=== PATIENT | female | born 1960 | race Caucasian/White ===

== ENCOUNTER → 2018-10-06 09:12 | Outpatient (CLI) | payer OTHER, SELFPAY ==
--- NOTE | 2018-10-06 09:21 | MM_ITS ---
MM Dig screening mamm BI w/CAD CAD Screening COMPARISON: Digital mammograms with CAD to 2015 and 10/16/2016 INDICATION: There is no personal or family history of breast cancer TECHNIQUE: Standard CC and MLO images were obtained. R2 CAD reviewed. FINDINGS: Prominent heterogenic fibroglandular densities are seen throughout both breasts. There is a new nodular density with smooth but slightly irregular borders just beneath the nipple left breast. Recommend the patient return for spot compression MLO and CC views and ultrasound for additional evaluation. There is a benign-appearing calcification left breast. There are several small small nodes in both axilla. IMPRESSION: Moderate diffuse breast density with asymmetric density left breast BI-RADS Category: 0 Need Additional Imaging Evaluation RECOMMENDED FOLLOW-UP: IMM - IMMEDIATE FOLLOW-UP RECOMMENDED (A letter has been sent to the patient regarding results of the study.)
== END ==
PROVIDERS: PCP Internal Medicine; Visit Provider Nurse Practitioner Obstetrics & Gynecology
DX: Z12.31 Encounter for screening mammogram for malignant neoplasm of breast (principal)
CPT/HCPCS: 77067

== ENCOUNTER → 2018-10-12 16:41 | Outpatient (CLI) | payer OTHER, SELFPAY | PROVIDERS: Visit Provider Nurse Practitioner Obstetrics & Gynecology | DX: N39.0 Urinary tract infection, site not specified (principal); Z01.419 Encounter for gynecological examination (general) (routine) without abnormal findings | CPT/HCPCS: 87086; 87088; 87186 ==

== ENCOUNTER → 2018-11-04 12:36 | Outpatient (CLI) | payer OTHER, SELFPAY ==
--- NOTE | 2018-11-04 12:38 | MM_ITS ---
PROCEDURE: MM DIG MAMM DX UNILAT LT CAD CLINICAL INDICATION: Dx Mamm Left Breast- abnormal mamm COMPARISON: DIG MAMMO BILAT SCREENING from 04/20/2015 [facility] DIG MAMM-SCREEN EDUARD W/CAD from 10/16/2016 DIG MAMM-SCREEN EDUARD from 10/06/2018 US BREAST LT COMPLETE from 11/04/2018 TECHNIQUE: Spot-compression views are performed of the left breast along with left breast ultrasound FINDINGS: Average to dense fibroglandular tissue which could result in obscuration of underlying breast lesion. Spot compression views of the left breast demonstrates a persistent 7 mm well-circumscribed nodule in the upper inner aspect of the left breast. This is well-circumscribed on the mL view but less well circumscribed on the CC view which could be due to overlying fibroglandular tissue. This is in the 10 o'clock region of the left breast. Left breast ultrasound: At 1 o'clock there is a hypoechoic nodule at 5 mm nonspecific. At 3 o'clock there is a 5 mm cyst. At 10 o'clock there is a 7 x 4 mm hypoechoic nodule. The margins are somewhat irregular. This is felt to correspond to the mammogram. There some decreased through transmission of sound. This is mildly suspicious and fine needle aspiration is suggested to determine if this is a complex cyst or a solid nodule. Small nodes are present in the axilla. IMPRESSION: Mildly suspicious nodule in the upper inner aspect of the left breast. Suggest sonographic guided aspiration. If this does not aspirate than core biopsy or mammotome biopsy would be performed at that time as well. BI-RAD Category: 4 Suspicious Abnormality - Biopsy Considered FOLLOW-UP: BIO Biopsy Recommended (A letter has been sent to the patient regarding results of the study.) Dictated by: Huber Redmond MD 11/09/2018 13:11 Electronically signed by Huber Redmond MD in [place] 11/09/2018 13:11
== END ==
PROVIDERS: PCP Family Medicine; Visit Provider Nurse Practitioner Obstetrics & Gynecology
DX: R92.8 Other abnormal and inconclusive findings on diagnostic imaging of breast (principal); N63.20 Unspecified lump in the left breast, unspecified quadrant
CPT/HCPCS: 76641; 77065

== ENCOUNTER → 2018-11-16 09:19 | Outpatient (CLI) | payer OTHER, SELFPAY ==
--- NOTE | 2018-11-16 09:21 | US_ITS ---
PROCEDURE: US FNA BREAST CLINICAL INDICATION: Abnormal mammogram and abnormal ultrasound with a complex hypoechoic nodule in the 10 o'clock region of the left breast COMPARISON: US BREAST LT COMPLETE from 11/04/2018 MM DIG MAMM DX UNILAT LT CAD from 11/16/2018 FINDINGS: Following obtaining informed consent under aseptic conditions and local anesthesia with 1 percent buffered lidocaine, 21 gauge needle was inserted into the nodule of interest at 10 o'clock. Minimal amount of aspirate was obtained and sent to cytology. The nodule collapsed. Post FNA mammogram was obtained. The patient tolerated the procedure well and left radiology suite in stable condition without evidence of immediate complication. Cytology: Negative for malignancy. Foam cells within a proteinaceous background compatible with benign cyst contents. IMPRESSION: Successful sonographic guided aspiration of the complex nodule in the 10 o'clock region of the left breast representing a benign cyst. Dictated by: Huber Redmond MD 11/28/2018 11:12 Electronically signed by Huber Redmond MD in [place] 11/28/2018 11:12
--- NOTE | 2018-11-16 10:36 | MM_ITS ---
PROCEDURE: MM DIG MAMM DX UNILAT LT CAD CLINICAL INDICATION: POST CYST ASPIRATION COMPARISON: [facility] DIG MAMM-SCREEN EDUARD W/CAD from 10/16/2016 DIG MAMM-SCREEN EDUARD from 10/06/2018 MM DIG MAMM DX UNILAT LT CAD from 11/04/2018 US FNA BREAST from 11/16/2018 TECHNIQUE: Standard CC and MLO images were obtained. R2 CAD reviewed. FINDINGS: Status post left breast cyst aspiration. Previously noted nodule at 10 o'clock is no longer apparent. No malignant appearing mass or malignant-appearing microcalcification. IMPRESSION: Benign findings. Left breast nodule no longer apparent indicating that the mammographic abnormality was concordant with the sonographic abnormality BI-RAD Category: 1 Negative FOLLOW-UP: 1YR 1 Year Follow-up (A letter has been sent to the patient regarding results of the study.) The Dictated by: Huber Redmond MD 11/26/2018 09:03 Electronically signed by Huber Redmond MD in [place] 11/28/2018 11:07
== END ==
PROVIDERS: PCP Internal Medicine; Visit Provider Nurse Practitioner Obstetrics & Gynecology
DX: R92.8 Other abnormal and inconclusive findings on diagnostic imaging of breast (principal); N63.21 Unspecified lump in the left breast, upper outer quadrant
CPT/HCPCS: 10005; 76942; 77065

== ENCOUNTER → 2018-12-21 08:45 | Outpatient (CLI) | payer OTHER, SELFPAY ==
--- NOTE | 2018-12-21 08:47 | FL_ITS ---
PROCEDURE: FL UPPER GI W AIR CLINICAL INDICATION: hiatal hernia Reflux, COMPARISON: No exams were available for comparison TECHNIQUE: FLUOROSCOPY TIME : 1 minutes and 27 seconds FINDINGS: There is medium-sized hiatal hernia which did not reduce during the course of the exam. Reflux was demonstrated. The GE junction has an unremarkable appearance. The stomach is otherwise unremarkable. No mass or ulcerative lesion is evident. Proximal small bowel has an unremarkable appearance. IMPRESSION: Medium-sized hiatal hernia with reflux otherwise negative upper GI Dictated by: Huber Redmond MD 12/21/2018 17:49 Electronically signed by Huber Redmond MD in [place] 12/21/2018 17:49
== END ==
PROVIDERS: PCP Internal Medicine; Visit Provider Surgery
DX: K21.9 Gastro-esophageal reflux disease without esophagitis (principal); K44.9 Diaphragmatic hernia without obstruction or gangrene
CPT/HCPCS: 74247

== ENCOUNTER → 2019-01-25 12:09 | Outpatient (CLI) | payer OTHER, SELFPAY ==
--- NOTE | 2019-01-25 12:17 | CT_ITS ---
PROCEDURE: CT HEAD/BRAIN WO CON CLINICAL INDICATION: HEADACHE, DIZZINESS Headache and dizziness, concussion follow-up COMPARISON: No exams were available for comparison TECHNIQUE: Axial images obtained. All CT scans at the facility use one or more dose reduction, viz: automated exposure control, ma/kV adjustment per patient size (including targeted exams where dose is matched to indication, i.e. head), or iterative reconstruction technique. FINDINGS: No midline shift, mass effect, intracranial hemorrhage, hydrocephalus, or extra-axial fluid collection is evident. The calvarium has an unremarkable appearance. No mastoid effusion. No sinus air-fluid level. IMPRESSION: Negative CT head without contrast Dictated by: Huber Redmond MD 01/25/2019 16:56 Electronically signed by Huber Redmond MD in [place] 01/25/2019 16:56
[2019-01-25 14:14] LABS: Thyroid Stimulating Hormone 3.81 uIU/ml (0.358-3.740)
[2019-01-26 11:46] LABS: Vitamin B12 490 pg/mL (232-1245)
== END ==
PROVIDERS: Visit Provider Specialist
DX: R42 Dizziness and giddiness (principal); E66.3 Overweight; E78.9 Disorder of lipoprotein metabolism, unspecified; M54.2 Cervicalgia; G47.33 Obstructive sleep apnea (adult) (pediatric); G47.00 Insomnia, unspecified; R06.83 Snoring; R53.83 Other fatigue; R79.89 Other specified abnormal findings of blood chemistry; Z86.79 Personal history of other diseases of the circulatory system
CPT/HCPCS: 36415; 70450; 82607; 84443; G0399

== ENCOUNTER → 2019-01-31 11:27 | Outpatient (CLI) | payer OTHER, SELFPAY ==
--- NOTE | 2019-01-31 11:32 | XR_ITS ---
PROCEDURE: XR CERVICAL SPINE W FLEX/EXT CLINICAL INDICATION: NECK PAIN COMPARISON: No exams were available for comparison FINDINGS: AP lateral oblique and flexion and extension views are obtained. There is normal alignment. There is mild degenerative disc disease at C5-C6. Mild foraminal narrowing is present on the right at C3-C4 C4-C5 with moderate foraminal narrowing on the right at C5-C6. No fracture or dislocation. No lytic or blastic change. There are carotid calcifications noted on the right. There are mild degenerative changes also at C1-C2 lateral masses. Flexion and extension views show no abnormal subluxation in flexion or extension IMPRESSION: Degenerative disc disease at C5-C6 with moderate right foraminal narrowing at that level and mild foraminal narrowing on the right at C3-C4 and C4-C5 Dictated by: Huber Redmond MD 01/31/2019 17:46 Electronically signed by Huber Redmond MD in [place] 01/31/2019 17:46
== END ==
PROVIDERS: PCP Internal Medicine; Visit Provider Specialist
DX: M54.2 Cervicalgia (principal)
CPT/HCPCS: 72052

== ENCOUNTER → 2019-12-29 10:49 | Outpatient (CLI) | payer OTHER, SELFPAY ==
--- NOTE | 2019-12-29 10:49 | MM_ITS ---
PROCEDURE: MM DIG SCREENING MAMM BI W/CAD Digital Breast Tomosynthesis Included CLINICAL INDICATION: Routine Screening Mammogram There is no personal or family history of breast cancer. There has been a cyst aspiration left breast. Patient currently is on estrogen and Premarin. COMPARISON: MG DIG MAMM-SCREEN EDUARD from 10/06/2018 MG MM DIG MAMM DX UNILAT LT CAD from 11/04/2018 MG MM DIG MAMM DX UNILAT LT CAD from 11/16/2018 TECHNIQUE: Standard CC and MLO images and 3D Tomosynthesis was obtained. R2 CAD reviewed. FINDINGS: Moderate diffuse fibroglandular densities are seen in the central portions of both breast and the findings are fairly symmetrical bilaterally. There is a small fatty replaced intramammary node upper outer quadrant right breast. In addition there is a spherical small mass upper outer quadrant right breast not definitely seen previously. This may represent a complex cyst however recommend the patient return for spot compression views and ultrasound for better evaluation. There are no suspicious microcalcifications. There are multiple small nodes in both axilla. IMPRESSION: Moderate somewhat heterogenic breast density with possible new nodular lesion right breast BI-RAD Category: 0 Need Additional Imaging Evaluation FOLLOW-UP: IMM Immediate Follow-up Recommended (A letter has been sent to the patient regarding results of the study.) Dictated by: Dr. Marco Sage MD 12/30/2019 11:38 Dr. Marco Sage MD in [place] 12/30/2019 11:38
== END ==
PROVIDERS: PCP Internal Medicine; Visit Provider Nurse Practitioner Obstetrics & Gynecology
DX: Z12.31 Encounter for screening mammogram for malignant neoplasm of breast (principal)
CPT/HCPCS: 77063; 77067

== ENCOUNTER → 2020-01-17 13:49 | Outpatient (CLI) | payer OTHER, SELFPAY ==
--- NOTE | 2020-01-17 13:49 | US_ITS ---
PROCEDURE: MM DIG MAMM DX UNILAT RT CAD Digital Breast Tomosynthesis Included Right breast ultrasound complete CLINICAL INDICATION: abnormal xmg Follow-up abnormal COMPARISON: MG DIG MAMMO BILAT SCREENING from 04/20/2015 MG [facility]MSB DIG MAMM-SCREEN EDUARD W/CAD from 10/16/2016 MG DIG MAMM-SCREEN EDUARD from 10/06/2018 MG MM DIG MAMM DX UNILAT LT CAD from 11/04/2018 MG MM DIG MAMM DX UNILAT LT CAD from 11/16/2018 MG MM DIG SCREENING MAMM BI W/CAD from 12/29/2019 US US BREAST RT COMPLETE from 01/17/2020 TECHNIQUE: Standard CC and MLO images and 3D Tomosynthesis was obtained. R2 CAD reviewed. FINDINGS: There is average fibroglandular tissue. A rounded nodules present in the upper aspect of the right breast with central lucency consistent with a lymph node which is unchanged. There is a 4 mm nodular opacity just inferior to this node as seen the MLO view and may be due to fibroglandular tissue not readily demonstrated the previous tomograms.. No malignant appearing mass or malignant-appearing microcalcification. Right breast ultrasound: In the 12 o'clock region of the right breast there is a measured area decreased echogenicity at 5 x 3 mm. This is of questionable significance and could even be due to fibroglandular tissue. Small hypoechoic area also noted at 1 o'clock at 4 mm by 5 mm and may be due to small complex cyst. 4 mm hypoechoic area at 6 o'clock. 5 mm cyst at 6 o'clock. 5 mm hypoechoic area at 8 o'clock possibly due to small complex cyst. Suspected 1 cm node at 11 o'clock outer. Axillary nodes are present measuring up to 17 mm. IMPRESSION: The above findings are probably benign. Suggest 6 month mammographic and sonographic follow-up. BI-RAD Category: 3 Probably Benign Finding Short Term Follow-up FOLLOW-UP: 6M 6Month Follow-up (A letter has been sent to the patient regarding results of the study.) Dictated by: Huber Redmond MD 01/20/2020 11:18 Huber Redmond MD in [place] 01/20/2020 11:18
== END ==
PROVIDERS: PCP Internal Medicine; Visit Provider Nurse Practitioner Obstetrics & Gynecology
DX: R92.8 Other abnormal and inconclusive findings on diagnostic imaging of breast (principal)
CPT/HCPCS: 76641; 77061; 77065; G0279

== ENCOUNTER → 2020-12-26 15:36 | Outpatient (CLI) | payer OTHER, SELFPAY ==
--- NOTE | 2020-12-26 15:37 | MM_ITS ---
PROCEDURE: MM DIG SCREENING MAMM BI W/CAD Digital Breast Tomosynthesis Included CLINICAL INDICATION: Routine Screening Mammogram There is no personal or family history of breast cancer. There has been a previous cyst aspiration left breast. The patient currently is on Premarin and estrogen. COMPARISON: MG MM DIG SCREENING MAMM BI W/CAD from 12/29/2019 MG MM DIG MAMM DX UNILAT RT CAD from 01/17/2020 TECHNIQUE: Standard CC and MLO images and 3D Tomosynthesis was obtained. R2 CAD reviewed. FINDINGS: Diffuse somewhat heterogenic fibroglandular densities are seen throughout both breasts. There is a stable small circular lesion upper outer quadrant right breast. There is a small fatty replaced node low in the axilla or axillary tail right breast and this was seen previously. There is benign-appearing calcification left breast. There is no suspicious lesion and no suspicious microcalcifications. IMPRESSION: Stable exam with no suspicious lesions seen BI-RAD Category: 2 Benign Finding(s) FOLLOW-UP: 1YR 1 Year Follow-up (A letter has been sent to the patient regarding results of the study.) Dictated by: Dr. Marco Sage MD 12/28/2020 10:36 Dr. Marco Sage MD in [place] 12/28/2020 10:36
== END ==
PROVIDERS: PCP Internal Medicine; Visit Provider Nurse Practitioner Obstetrics & Gynecology
DX: Z12.31 Encounter for screening mammogram for malignant neoplasm of breast (principal)
CPT/HCPCS: 77063; 77067

== ENCOUNTER → 2022-02-11 15:15 | Outpatient (CLI) | payer OTHER, SELFPAY ==
--- NOTE | 2022-02-11 15:16 | MM_ITS ---
PROCEDURE INFORMATION: Exam: MG Bilateral Screening 3D Mammography Exam date and time: 02/11/2022 3:10 PM Age: 61 years old Clinical indication: Screening examination TECHNIQUE: Imaging protocol: Bilateral Screening tomosynthesis and 2D mammography including computer-aided detection (CAD) when performed. COMPARISON: 1. MG MM DIG SCREENING MAMM BI W/CAD 12/26/2020 4:02 PM 2. MG MM DIG MAMM DX UNILAT RT CAD 01/17/2020 1:53 PM FINDINGS: MAMMOGRAPHY: Breast composition: The breasts are heterogeneously dense, which may obscure small masses. Mass: None. Architectural distortion: None. Calcifications: No suspicious calcifications. Asymmetric density: None. Skin thickening: None. Axillary adenopathy: None. IMPRESSION: No mammographic evidence of malignancy. Annual screening is recommended unless otherwise clinically indicated. ASSESSMENT: BI-RADS Category 1: Negative
== END ==
PROVIDERS: PCP Internal Medicine; Visit Provider Nurse Practitioner Obstetrics & Gynecology
DX: Z12.31 Encounter for screening mammogram for malignant neoplasm of breast (principal)
CPT/HCPCS: 77063; 77067

== ENCOUNTER → 2023-02-20 10:49 | Outpatient (CLI) | payer OTHER, SELFPAY ==
--- NOTE | 2023-02-20 10:49 | MM_ITS ---
PROCEDURE INFORMATION: Exam: MG Bilateral Screening 3D Mammography Exam date and time: 02/20/2023 10:45 AM Age: 62 years old Clinical indication: Screening mammogram TECHNIQUE: Imaging protocol: Bilateral Screening tomosynthesis and 2D mammography including computer-aided detection (CAD) when performed. COMPARISON: 1. MG MM DIG SCREENING MAMM BI W/CAD 02/11/2022 3:10 PM 2. MG MM DIG SCREENING MAMM BI W/CAD 12/26/2020 4:02 PM 3. MG MM DIG MAMM DX UNILAT RT CAD 01/17/2020 1:53 PM 4. MG MM DIG SCREENING MAMM BI W/CAD 12/29/2019 10:56 AM FINDINGS: MAMMOGRAPHY: Breast composition: There are scattered areas of fibroglandular density. Mass: Stable benign-appearing subcentimeter nodules are present in the left breath. No new or morphologically suspicious nodule has developed to suggest malignancy. Architectural distortion: No new or suspicious architectural distortion. Calcifications: No new or suspicious calcifications are present Asymmetric density: No new or suspicious asymmetric density is present Skin thickening: None. Axillary adenopathy: None. IMPRESSION: No mammographic evidence of malignancy. Recommend annual screening mammography unless otherwise clinically indicated. ASSESSMENT: BI-RADS category 2: Benign
== END ==
PROVIDERS: PCP Internal Medicine; Visit Provider Nurse Practitioner Obstetrics & Gynecology
DX: Z12.31 Encounter for screening mammogram for malignant neoplasm of breast (principal)
CPT/HCPCS: 77063; 77067

== ENCOUNTER 2023-07-03 06:24 | Day surgery (SDC) | payer OTHER, SELFPAY ==
[2023-07-02 09:50] VITALS: BMI 29.2
[2023-07-03] MEDS: LACTATED RINGERS 1000ML 1,000 ML 25 ML IV (06:38)
[2023-07-03 06:40] VITALS: BP 149/73; PULSE 67; RESP 18; TEMP 36.2; O2SAT 97
--- NOTE | 2023-07-03 07:00 | EXP.ANES.CKL ---
[facility] Disclaimer: The information contained in this section may have been updated after the patient was seen, as this information can be updated by other users. Medical History Cataract Bladder prolapse Surgical History H/O tubal ligation Hx of cataract surgery Hx of section History of appendectomy Hx of tonsillectomy Family History Other Diabetes Hypertension Social History Smoking Status: Never smoker alcohol intake: never substance use type: other current occupational status: employed and other Travel in the last 8 weeks: None housing: house current occupational exposures/hazards: No caffeine: Yes [facility] Anesthesia Checklist Patient Identification Patient Identification: Arm Band and Verbal (Name & ) Structural Data Admitted From: Home Planned Operative Procedure/s: Colonoscopy Consent for Planned Operative Procedure(s) Verified: Yes NPO Status Verified Time NPO: 00:00 Additional verifications Anesthesia Reactions: No (nausea) Hx Blood Transfusions: No Blood Transfusion Reaction: No Airway Assessment Mallampati Score:: Class I C-Spine Mobility Assessed: Yes TMJ Mobility Assessed: Yes Dentition: Good Dentition Neurological Assessment Level of Consciousness: Awake Hx Seizures: No Numbness or tingling in extremities: No Anesthesia Plan Anesthesia Risk discussed: Yes Anesthesia Plan: Verified ASA Class: II Anesthesia Type: MAC
[2023-07-03 07:14] VITALS: O2SAT 97
--- NOTE | 2023-07-03 07:56 | P.PCN_ITS ---
Procedure: Date: 07/03/23 Patient Date of :: 1960 Procedure Performed:: Total colonoscopy to terminal ileum with biopsies and polypectomy using biopsy forceps Indications:: Patient is a 62-year-old female from [facility]. She presents for screening colonoscopy. She was referred by Dr. Jerod Gomez. She underwent colonoscopy with Dr. Kee on 12/15/2018. She had the following findings: * Significant spasticity/lack of relaxation * Fair bowel preparation * Periappendiceal polyp (sessile serrated adenoma) * Large complex pedunculated tubular adenoma at 30 cm. He had recommended repeat colonoscopy in 1 year Performing Provider:: Larry Langley MD Referring Provider:: MD Filippo Samson MD Sedation:: MAC sedation Procedure:: Patient history was obtained and appropriate physical examination was performed. Patient's medications and allergies were reviewed. Informed consent was obtained after explaining the benefits, alternatives, and risks of the procedure including, but not limited to, bleeding, perforation, missed lesions, and adverse reaction to anesthesia medications. Patient was transported to endoscopy procedure room. Patient was connected to monitoring devices. Throughout the procedure the patient's blood pressure, pulse, and oxygen saturations were monitored continuously. Patient identification and planned procedure were verified by the staff. Patient was positioned in lateral decubitus position. Digital anorectal exam was performed. Variable stiffness Olympus colonoscope was inserted and advanced under direct visualization to the cecum. Adequacy of the colonic preparation was noted. The colonoscope was advanced a short distance into the terminal ileum. The colonoscope was then slowly withdrawn while carefully examining the color, texture, anatomy, and integrity of the mucosoa circumferentially. Within the rectum retroflexion was performed. Colonoscope was then withdrawn. Impression: Colonic preparation was good although there was some opaque liquid stool which was suctioned and irrigated free. In the cecum and the appendiceal location there was initially felt to be a sessile possible polyp. This was observed for some time and methylene blue was injected submucosally to raise the area. It appeared to be less likely adenomatous upon further review but multiple biopsies were obtained. It was rather subtle. At the hepatic flexure there was a subtle mucosal prominence which was biopsied with cold biopsy forceps. Noted at the ileocecal valve was a subtle mucosal prominence which was removed with biopsy forceps and labeled ileocecal valve polyp. There were some rare sigmoid diverticulosis. In the distal sigmoid region there were a couple of hyperplastic appearing polyps removed with biopsy forceps. The rectosigmoid region there were a couple of hyperplastic polyps removed with biopsy forceps. She had minimal internal hemorrhoids. . Findings:: Polyps as noted above. Questionable polypoid lesion at the appendiceal location. Biopsies performed Minimal internal hemorrhoids Rare sigmoid diverticulosis . Recommendations:: Follow-up colonoscopy pending pathology. If there is adenomatous component to the periappendiceal lesion biopsies may require rather early repeat colonoscopy to ensure complete removal or even consideration of appendectomy with generous margins. Complications:: None immediately apparent Estimated blood obtained (mL): 2 Colonoscopy Component Colonoscopy Component Was a colonoscopy performed during today's procedure?: Yes Recommended follow up colonoscopy of at least 10 years?: No If no, follow up colonoscopy recommended in ___ years?: See above Reason for not recommending >/= 10 yr follow-up interval?: See above
[2023-07-03 07:58] VITALS: BP 86/57; PULSE 70; RESP 14; TEMP 36.4; O2SAT 92
[2023-07-03 08:08] VITALS: BP 102/56; PULSE 85; RESP 14; O2SAT 91
[2023-07-03 08:18] VITALS: BP 108/67; PULSE 68; RESP 18; O2SAT 94
== END 2023-07-03 08:21 | disposition home or self-care (01) ==
PROVIDERS: PCP Internal Medicine; Visit Provider Surgery
PROC: 0DJD8ZZ Inspection of Lower Intestinal Tract, Via Natural or Artificial Opening Endoscopic (ICD-10-PCS; CPT 45380; principal; 2023-07-03 07:30)
DX: Z12.11 Encounter for screening for malignant neoplasm of colon (principal); Z86.010 Personal history of colon polyps; K63.5 Polyp of colon; K64.8 Other hemorrhoids; K57.30 Diverticulosis of large intestine without perforation or abscess without bleeding
CPT/HCPCS: 45380; J2704

== ENCOUNTER 2024-02-26 10:04 | Outpatient (CLI) | payer OTHER, SELFPAY ==
--- NOTE | 2024-02-26 10:04 | MM_ITS ---
PROCEDURE INFORMATION: Exam: MG Bilateral Screening 3D Mammography Exam date and time: 02/26/2024 9:52 AM Age: 63 years old Clinical indication: Screening. No family history of breast cancer. TECHNIQUE: Imaging protocol: Bilateral Screening tomosynthesis and 2D mammography including computer-aided detection (CAD) when performed. COMPARISON: 1. MG MM DIG SCREENING MAMM BI W/CAD 02/20/2023 10:45 AM 2. MG MM DIG SCREENING MAMM BI W/CAD 02/11/2022 3:10 PM 3. MG MM DIG SCREENING MAMM BI W/CAD 12/26/2020 4:02 PM 4. MG MM DIG MAMM DX UNILAT RT CAD 01/17/2020 1:53 PM FINDINGS: MAMMOGRAPHY: Breast composition: There are scattered areas of fibroglandular density. Mass: No suspicious mass. Architectural distortion: None. Calcifications: No suspicious calcifications. Asymmetric density: None. Skin thickening: None. Axillary adenopathy: None. IMPRESSION: No mammographic evidence of malignancy. Annual screening is recommended unless otherwise clinically indicated. ASSESSMENT: BI-RADS Category 1: Negative.
== END 2024-02-26 23:59 | disposition home or self-care (01) ==
LOC: RAD 10:04
PROVIDERS: PCP Internal Medicine; Visit Provider Nurse Practitioner Obstetrics & Gynecology
DX: Z12.31 Encounter for screening mammogram for malignant neoplasm of breast (principal)
CPT/HCPCS: 77063; 77067